=== PATIENT | female | born 1945 | race Caucasian/White ===

== ENCOUNTER 2021-10-19 22:57 | Inpatient (IN) | payer MEDICARE, BC ==
[~2021-10-19] VITALS: Ht 154.9 cm; Wt 60.7 kg
[2021-10-19] MEDS ORDERED: heparin 10,000 units/1 ML INJ IV PRN ×2 (23:10→23:11)
[2021-10-19] MEDS ORDERED: heparin 25,000 UNIT/250ml bag 250 ML IV SCH (23:10)
[2021-10-19] MEDS ORDERED: heparin 10,000 units/1 ML INJ IV ONE ×2 (23:10→23:15)
--- NOTE | 2021-10-19 23:10 | NUR ---
AT BEDSIDE. EKG COMPLETED.
--- NOTE | 2021-10-19 23:11 | NUR ---
RT HAS BEEN PAGED.
[2021-10-19] MEDS ORDERED: ondansetron/PF 4mg/2ml inj IV ONE (23:15)
--- NOTE | 2021-10-19 23:17 | NUR ---
RT IN ROOM.
--- NOTE | 2021-10-19 23:39 | NUR ---
DR HERNANDEZ IN ROOM. DISCUSSED PT'S HEMOGLOBIN, BLOOD TRANSFUSION, AND HEPARIN ORDER WITH DR HERNANDEZ. PT REQUESTED TO HAVE ALL HEPARIN ORDERS CANCELLED.
[2021-10-20 00:08] LABS: ABG BASE EXCESS -2.6 mmol/L (-2.0-2.0); ABG HCO3 21.1 mmol/L (22.0-26.0); ABG OXYGEN SATURATION 98.5 % (94-97); ABG PCO2 (T) 32.2 mmHg (32.0-45.0); ABG PO2 (T) 130.4 mmHg (75.0-100.0); ALLEN'S TEST POSITIVE; FCOHb 0.7 % (0.0-3.9); FMetHb 0.3 % (0.0-1.5); FO2Hb 97.5 % (94-97); TOTAL HEMOGLOBIN 8.7 G/dl (12.0-16.0)
--- NOTE | 2021-10-20 00:38 | NUR ---
CALLED DR HERNANDEZ D/T PT'S INCREASED HEART RATE. ORDERED TO PUT A RICHTER CATHETER IN PATIENT AND GIVE 1/2 ON NS TO PT AND THEN START ON MAINTENANCE FLUIDS 100 ML/ HR.
[2021-10-20] MEDS ORDERED: mag hydrox/Alum hydrox/simeth 30ml oral suspension PO PRN (00:50)
[2021-10-20] MEDS: normal saline 1000ml 1,000 ML IV SCH ×3 (00:50→20:19)
[2021-10-20] MEDS ORDERED: acetaminophen 650mg rectal suppository RC PRN (00:50)
[2021-10-20] MEDS ORDERED: diphenhydrAMINE 25mg capsule PO PRN (00:50)
[2021-10-20] MEDS ORDERED: ondansetron/PF 4mg/2ml inj IV PRN (00:50)
[2021-10-20] MEDS ORDERED: morphine 2 MG/ML inj. syringe IV PRN (00:50)
[2021-10-20] MEDS ORDERED: ondansetron 4mg rapidly disintigrating tab PO PRN (00:50)
[2021-10-20] MEDS ORDERED: ipratropium/albuterol 3ml nebule NEB PRN (00:50)
[2021-10-20] MEDS ORDERED: bisacodyl 10mg suppository rectal RC PRN (00:50)
[2021-10-20] MEDS ORDERED: magnesium hydroxide 30ml (MOM) UD suspension PO PRN (00:50)
[2021-10-20] MEDS ORDERED: acetaminophen 325mg tablet PO PRN ×2 (00:50)
--- NOTE | 2021-10-20 00:54 | NUR ---
UPDATED XAVIER, DAUGHTER, ON PT'S CONDITION WITH PT'S PERMISSION. REQUESTED TO HAVE INFO RATHER THAN FATHER FATHER IS ON OXYGEN AT PRESENT. [phone]
[2021-10-20 04:28] LABS: COLOR,URINE YELLOW (Yellow); GLUCOSE, URINE NEGATIVE (Neg); KETONES,URINE NEGATIVE (Neg); LEUKOCYTE ESTERASE ,URINE NEGATIVE (Neg); NITRITES, URINE NEGATIVE (Neg); OCCULT BLOOD,URINE NEGATIVE (Neg); PH,URINE 6.5 (4.8-8.0); PROTEIN,URINE NEGATIVE (Neg); UROBILINOGEN,URINE 0.2 E.U/dL (0.2-1.0)
[2021-10-20 04:33] LABS: UA COLLECTION TYPE FOLEY CATH
[2021-10-20 04:34] LABS: CLARITY,URINE Clear (Clear)
[2021-10-20 04:50] VITALS: BP 98/48
[2021-10-20 07:00] VITALS: BP 98/45
[2021-10-20 07:08] LABS: APTT 25 SECONDS (22-32)
[2021-10-20 07:27] LABS: MAGNESIUM 2.6 MG/DL (1.5-2.4); PHOSPHORUS 3.5 MG/DL (2.3-4.5)
[2021-10-20] MEDS: pantoprazole 40mg Tablet.DR PO SCH (07:30)
[2021-10-20] MEDS: azithromycin/NS 500mg/250ml 250 ML IV SCH (08:00)
[2021-10-20] MEDS: CefTRIAXone/D5W-Rocephin 1gm 50 ML IV SCH (08:00)
[2021-10-20] MEDS: methylPREDNISolone sod succ 125mg/2ml vial IV SCH ×2 (08:00→20:13)
[2021-10-20] MEDS: docusate sod 100mg capsule PO SCH ×2 (08:00→20:14)
--- NOTE | 2021-10-20 08:54 | NUR ---
Paged RT Re: Vania Flores RM [id number]. Pt having increased SOB needing to be treated. Kirstin ANNE [id number]
--- NOTE | 2021-10-20 09:04 | NUR ---
Critical Lab Trop 0Hr. 6066, increased SOB. Ordered 12 EKG via protocol. Skinny PEREZ.
[2021-10-20 09:15] LABS: HEMOGLOBIN A1C 5.7 % (4.5-6.2)
[2021-10-20 11:00] VITALS: BP 110/56
[2021-10-20] MEDS ORDERED: potassium Cl 40MEQ/1/2NS 520ml 520 ML IV PRN (12:05)
[2021-10-20] MEDS ORDERED: magnesium Cl slow-release 64mg tablet PO PRN (12:05)
[2021-10-20] MEDS ORDERED: magnesium 4gm in 100ml NS 100 ML IV PRN (12:05)
[2021-10-20] MEDS ORDERED: potassium Cl 20 mEq SR tablet PO PRN (12:05)
[2021-10-20 12:59] LABS: BASOPHILS # (AUTO) 0.1 X10'3 (0-0.2); BASOPHILS % (AUTO) 1.3 % (0-1); EOSINOPHILS % (AUTO) 0.2 % (0-6); HEMATOCRIT 23.4 % (35.0-45.0); HEMOGLOBIN 7.6 g/dl (12.0-16.0); LYMPHOCYTES # (AUTO) 0.8 X10'3 (1.1-4.8); LYMPHOCYTES % (AUTO) 8.3 % (21-51); MEAN CORPUSCULAR HEMOGLOBIN 26.9 PG (27.0-31.0); MEAN CORPUSCULAR HGB CONC 32.4 g/dL (33.0-36.5); MEAN PLATELET VOLUME 8.6 FL (7.4-10.4); MONOCYTES # (AUTO) 0.9 X10'3 (0-0.9); MONOCYTES % (AUTO) 9.2 % (2-12); PLATELET COUNT 398 X10'3 (140-440); RED BLOOD COUNT 2.83 X10'6 (4.20-5.60); RED CELL DISTRIBUTION WIDTH 16.9 % (11.5-14.5); WHITE BLOOD COUNT 9.8 X10'3 (4.5-11.0)
[2021-10-20 13:13] LABS: ALANINE AMINOTRANSFERASE 15 U/L (12-78); ALBUMIN/GLOBULIN RATIO 0.8 (1.1-1.5); ALKALINE PHOSPHATASE 48 IU/L (46-116); ANION GAP 12 (8-16); ASPARTATE AMINO TRANSFERASE 42 U/L (10-37); BILIRUBIN,TOTAL 0.6 MG/DL (0.1-1.0); BLOOD UREA NITROGEN 24 MG/DL (7-18); BUN/CREATININE RATIO 12.7 (6.6-38.0); CALCIUM 8.5 MG/DL (8.5-10.1); CHLORIDE 112 MMOL/L (99-107); CREATININE 1.89 MG/DL (0.40-0.90); GLUCOSE 117 MG/DL (70-104); POTASSIUM 3.2 MMOL/L (3.5-5.1); SODIUM 147 MMOL/L (135-145); TOTAL CARBON DIOXIDE 22.6 MMOL/L (24-32); TOTAL PROTEIN 6.6 G/DL (6.4-8.2); eGFR 26 ML/MIN
[2021-10-20] MEDS ORDERED: heparin 25,000 UNIT/250ml bag 250 ML IV SCH (14:46)
[2021-10-20] MEDS ORDERED: heparin 10,000 units/1 ML INJ IV ONE (14:50)
[2021-10-20] MEDS ORDERED: heparin 10,000 units/1 ML INJ IV PRN (14:50)
[2021-10-20 15:00] VITALS: BP 109/83
[2021-10-20] MEDS: heparin 25,000 UNIT/250ml bag 250 ML IV SCH (15:07)
[2021-10-20] MEDS ORDERED: POTASSIUM 8 MEQ (16:38)
[2021-10-20] MEDS ORDERED: TOLT2CAP21 PO (16:38)
[2021-10-20] MEDS ORDERED: CYCL-1 PO (16:38)
[2021-10-20] MEDS ORDERED: ESCI-8 PO (16:38)
[2021-10-20] MEDS ORDERED: AMLO5TAB16 PO (16:38)
[2021-10-20] MEDS ORDERED: FURO20TA4 PO (16:38)
[2021-10-20] MEDS ORDERED: LEVO75TA7 PO (16:38)
[2021-10-20] MEDS ORDERED: FENO48TA10 PO (16:38)
[2021-10-20] MEDS ORDERED: METO50TA16 PO (16:38)
[2021-10-20] MEDS ORDERED: QUET25TA36 PO (16:38)
--- NOTE | 2021-10-20 16:41 | NUR ---
Message: [id number] DOMINIC. HOME MED REC IS NOW READY FOR YOU. MARY RAI
[2021-10-20 18:00] VITALS: BP 109/61
[2021-10-20] MEDS: cyclobenzaprine 10mg tablet PO SCH (20:13)
[2021-10-20] MEDS: furosemide 20MG tablet PO SCH (20:15)
[2021-10-20] MEDS: potassium Cl 20 mEq SR tablet PO PRN (20:15)
[2021-10-20] MEDS: K and/or MAG REPLACEMENT MC SCH (20:15)
[2021-10-20] MEDS: metoprolol tartrate 50mg tablet PO SCH (20:19)
[2021-10-20] MEDS: QUEtiapine 25mg tablet PO SCH (20:20)
[2021-10-20] MEDS: temazepam 15mg capsule PO PRN (22:48)
--- NOTE | 2021-10-20 23:00 | NUR ---
patient fischer removed after being very persistent about it being removed. patient walked to the bathroom x1 assist pt has unsteady gait. was able to urinate. Dr Destiny Celestin notified
[2021-10-21 02:39] VITALS: BP 104/56
--- NOTE | 2021-10-21 04:00 | NUR ---
bladder scan done 86cc noted
[2021-10-21 04:33] LABS: APTT 60 SECONDS (22-32)
[2021-10-21] MEDS: potassium Cl 20 mEq SR tablet PO PRN (05:58)
[2021-10-21] MEDS: normal saline 1000ml 1,000 ML IV SCH ×2 (06:50→16:50)
--- NOTE | 2021-10-21 06:51 | NUR ---
Problems reprioritized. Patient report given, questions answered & plan of care reviewed with Shannon ANNE.
[2021-10-21 07:37] LABS: BASOPHILS % (AUTO) 0.1 % (0-1); EOSINOPHILS % (AUTO) 0 % (0-6); HEMATOCRIT 23.9 % (35.0-45.0); HEMOGLOBIN 7.4 g/dl (12.0-16.0); LYMPHOCYTES # (AUTO) 0.6 X10'3 (1.1-4.8); LYMPHOCYTES % (AUTO) 6.9 % (21-51); MEAN CORPUSCULAR HEMOGLOBIN 26.3 PG (27.0-31.0); MEAN CORPUSCULAR HGB CONC 31.1 g/dL (33.0-36.5); MEAN CORPUSCULAR VOLUME 84.5 FL (78-98); MEAN PLATELET VOLUME 8.5 FL (7.4-10.4); MONOCYTES # (AUTO) 0.1 X10'3 (0-0.9); MONOCYTES % (AUTO) 1.6 % (2-12); NEUTROPHILS # (AUTO) 7.4 X10'3 (1.8-7.7); NEUTROPHILS % (AUTO) 91.4 % (42-75); PLATELET COUNT 406 X10'3 (140-440); RED BLOOD COUNT 2.83 X10'6 (4.20-5.60); RED CELL DISTRIBUTION WIDTH 17.2 % (11.5-14.5); WHITE BLOOD COUNT 8.1 X10'3 (4.5-11.0)
[2021-10-21 08:00] VITALS: BP 97/50
[2021-10-21] MEDS: tolterodine 2mg SR capsule (24hr) PO SCH (08:00)
[2021-10-21] MEDS ORDERED: amLODIPine 5mg tablet PO SCH (08:00)
[2021-10-21] MEDS: furosemide 20MG tablet PO SCH ×2 (08:00→20:38)
[2021-10-21] MEDS ORDERED: non-formulary drug (Escitalopram Oxalate 1 TAB) PO SCH (08:00)
[2021-10-21] MEDS: K and/or MAG REPLACEMENT MC SCH ×2 (08:00→20:39)
[2021-10-21] MEDS: docusate sod 100mg capsule PO SCH ×2 (08:00→20:39)
[2021-10-21] MEDS: metoprolol tartrate 50mg tablet PO SCH ×2 (08:00→20:38)
[2021-10-21 08:24] LABS: ALANINE AMINOTRANSFERASE 21 U/L (12-78); ALBUMIN/GLOBULIN RATIO 0.9 (1.1-1.5); ANION GAP 14 (8-16); ASPARTATE AMINO TRANSFERASE 41 U/L (10-37); BILIRUBIN,TOTAL 0.4 MG/DL (0.1-1.0); BLOOD UREA NITROGEN 26 MG/DL (7-18); BUN/CREATININE RATIO 14.3 (6.6-38.0); CALCIUM 8.4 MG/DL (8.5-10.1); CHLORIDE 114 MMOL/L (99-107); CHOL/HDL RATIO 1.9 (0.00-4.99); CHOLESTEROL 142 MG/DL (0-200); CREATININE 1.82 MG/DL (0.40-0.90); GLUCOSE 133 MG/DL (70-104); HDL CHOLESTEROL 74 MG/DL (35-60); MAGNESIUM 2.7 MG/DL (1.5-2.4); PHOSPHORUS 2.8 MG/DL (2.3-4.5); POTASSIUM 3.7 MMOL/L (3.5-5.1); SODIUM 150 MMOL/L (135-145); TOTAL CARBON DIOXIDE 22.3 MMOL/L (24-32); TOTAL PROTEIN 6.3 G/DL (6.4-8.2); TRIGLYCERIDES 80 MG/DL (20-135); eGFR 27 ML/MIN
[2021-10-21 09:56] LABS: APTT 56 SECONDS (22-32)
[2021-10-21] MEDS: levoTHYROXINE 75mcg tablet PO SCH (10:13)
[2021-10-21] MEDS: ESCITALOPRAM OXALATE 5 MG TABLET PO SCH (10:14)
[2021-10-21] MEDS: fenofibrate 48mg tablet PO SCH (10:15)
[2021-10-21] MEDS: pantoprazole 40mg Tablet.DR PO SCH (10:21)
[2021-10-21] MEDS: CefTRIAXone/D5W-Rocephin 1gm 50 ML IV SCH (10:21)
[2021-10-21] MEDS: methylPREDNISolone sod succ 125mg/2ml vial IV SCH ×2 (10:21→20:37)
[2021-10-21 10:54] LABS: LDL CHOLESTEROL 56 MG/DL (50-100)
[2021-10-21 11:00] VITALS: BP_SYST 114; BP_DIAS 57; BP_DIAS 60
[2021-10-21 11:10] LABS: ALKALINE PHOSPHATASE 60 IU/L (46-116)
[2021-10-21] MEDS: azithromycin/NS 500mg/250ml 250 ML IV SCH (11:34)
[2021-10-21 15:00] VITALS: BP_SYST 112; BP_SYST 95; BP_DIAS 51; BP_DIAS 61
[2021-10-21 18:00] VITALS: BP 112/58
[2021-10-21] MEDS: QUEtiapine 25mg tablet PO SCH (20:37)
[2021-10-21] MEDS: cyclobenzaprine 10mg tablet PO SCH (20:39)
[2021-10-21 22:00] VITALS: BP 100/53
[2021-10-21] MEDS: heparin 25,000 UNIT/250ml bag 250 ML IV SCH (22:05)
[2021-10-21 23:19] LABS: APTT 51 SECONDS (22-32)
[2021-10-21] MEDS ORDERED: dextrose 5%-water 1,000 ML IV SCH (23:45)
[2021-10-22] MEDS: temazepam 15mg capsule PO PRN ×2 (00:28→20:37)
[2021-10-22] MEDS: aspirin 81mg, enteric-coated 1 TAB TABLET.DR PO SCH ×2 (00:46→09:46)
[2021-10-22 02:00] VITALS: BP 103/50
[2021-10-22 06:00] VITALS: BP 119/74
--- NOTE | 2021-10-22 06:44 | NUR ---
Problems reprioritized. Patient report given, questions answered & plan of care reviewed with Steph RN
[2021-10-22 06:57] LABS: BASOPHILS % (AUTO) 0 % (0-1); EOSINOPHILS % (AUTO) 0 % (0-6); HEMOGLOBIN 7.2 g/dl (12.0-16.0); LYMPHOCYTES # (AUTO) 0.5 X10'3 (1.1-4.8); LYMPHOCYTES % (AUTO) 5.2 % (21-51); MEAN CORPUSCULAR HEMOGLOBIN 26.2 PG (27.0-31.0); MEAN CORPUSCULAR HGB CONC 31.3 g/dL (33.0-36.5); MEAN PLATELET VOLUME 8.5 FL (7.4-10.4); MONOCYTES # (AUTO) 0.2 X10'3 (0-0.9); MONOCYTES % (AUTO) 1.8 % (2-12); NEUTROPHILS # (AUTO) 8.3 X10'3 (1.8-7.7); PLATELET COUNT 429 X10'3 (140-440); RED BLOOD COUNT 2.74 X10'6 (4.20-5.60); RED CELL DISTRIBUTION WIDTH 17.9 % (11.5-14.5)
[2021-10-22 07:07] LABS: APTT 50 SECONDS (22-32)
[2021-10-22 07:47] LABS: ALANINE AMINOTRANSFERASE 41 U/L (12-78); ALBUMIN 2.9 G/DL (3.4-5.0); ALBUMIN/GLOBULIN RATIO 0.9 (1.1-1.5); ALKALINE PHOSPHATASE 59 IU/L (46-116); ANION GAP 12 (8-16); ASPARTATE AMINO TRANSFERASE 73 U/L (10-37); BILIRUBIN,TOTAL 0.4 MG/DL (0.1-1.0); BLOOD UREA NITROGEN 38 MG/DL (7-18); BUN/CREATININE RATIO 21.2 (6.6-38.0); CALCIUM 8.2 MG/DL (8.5-10.1); CHLORIDE 113 MMOL/L (99-107); CREATININE 1.79 MG/DL (0.40-0.90); GLUCOSE 133 MG/DL (70-104); MAGNESIUM 2.7 MG/DL (1.5-2.4); PHOSPHORUS 3.4 MG/DL (2.3-4.5); POTASSIUM 3.7 MMOL/L (3.5-5.1); SODIUM 148 MMOL/L (135-145); TOTAL CARBON DIOXIDE 23.5 MMOL/L (24-32); TOTAL PROTEIN 6.2 G/DL (6.4-8.2); eGFR 27 ML/MIN
[2021-10-22] MEDS: K and/or MAG REPLACEMENT MC SCH ×2 (08:00→20:00)
[2021-10-22] MEDS: pantoprazole 40mg Tablet.DR PO SCH (09:45)
[2021-10-22] MEDS: levoTHYROXINE 75mcg tablet PO SCH (09:46)
[2021-10-22] MEDS: ESCITALOPRAM OXALATE 5 MG TABLET PO SCH (09:46)
[2021-10-22] MEDS: atorvastatin 10mg tablet PO SCH (09:47)
[2021-10-22] MEDS: fenofibrate 48mg tablet PO SCH (09:47)
[2021-10-22] MEDS: metoprolol tartrate 50mg tablet PO SCH ×2 (09:56→20:38)
[2021-10-22] MEDS: docusate sod 100mg capsule PO SCH ×2 (09:56→20:37)
[2021-10-22] MEDS: methylPREDNISolone sod succ 125mg/2ml vial IV SCH ×2 (09:58→20:38)
[2021-10-22] MEDS: furosemide 20 MG/2 ML vial IV SCH ×2 (09:59→20:38)
[2021-10-22] MEDS: tolterodine 2mg SR capsule (24hr) PO SCH (10:02)
[2021-10-22] MEDS: azithromycin/NS 500mg/250ml 250 ML IV SCH (10:03)
[2021-10-22] MEDS: CefTRIAXone/D5W-Rocephin 1gm 50 ML IV SCH (10:26)
[2021-10-22 11:00] VITALS: BP 103/58
[2021-10-22 15:00] VITALS: BP 112/55
[2021-10-22 18:00] VITALS: BP 135/83
[2021-10-22] MEDS: cyclobenzaprine 10mg tablet PO SCH (20:37)
[2021-10-22] MEDS: QUEtiapine 25mg tablet PO SCH (20:37)
[2021-10-22] MEDS: ROPINIRole 0.25mg tablet PO SCH (21:00)
[2021-10-22 22:22] VITALS: BP 128/80
[2021-10-23] MEDS: diphenhydrAMINE 50 mg/ml inj IV PRN (00:05)
[2021-10-23 02:00] VITALS: BP 133/74
[2021-10-23 04:36] LABS: OCCULT BLOOD STOOL NEGATIVE (Neg)
[2021-10-23 06:00] VITALS: BP 126/81
[2021-10-23 07:36] LABS: EOSINOPHILS % (AUTO) 0 % (0-6); HEMOGLOBIN 8.8 g/dl (12.0-16.0); LYMPHOCYTES # (AUTO) 0.2 X10'3 (1.1-4.8); MONOCYTES # (AUTO) 0.4 X10'3 (0-0.9)
[2021-10-23 07:38] LABS: BASOPHILS % (AUTO) 0.3 % (0-1); LYMPHOCYTES % (AUTO) 2.4 % (21-51); MEAN CORPUSCULAR HEMOGLOBIN 26.7 PG (27.0-31.0); MEAN CORPUSCULAR HGB CONC 31.4 g/dL (33.0-36.5); MEAN CORPUSCULAR VOLUME 85.1 FL (78-98); MEAN PLATELET VOLUME 8.9 FL (7.4-10.4); MONOCYTES % (AUTO) 4.3 % (2-12); PLATELET COUNT 356 X10'3 (140-440); RED BLOOD COUNT 3.29 X10'6 (4.20-5.60); RED CELL DISTRIBUTION WIDTH 17.5 % (11.5-14.5); WHITE BLOOD COUNT 8.6 X10'3 (4.5-11.0)
[2021-10-23] MEDS: K and/or MAG REPLACEMENT MC SCH ×2 (08:00→20:00)
[2021-10-23] MEDS: docusate sod 100mg capsule PO SCH ×2 (08:00→11:34)
[2021-10-23] MEDS: furosemide 20 MG/2 ML vial IV SCH ×2 (08:00→20:18)
[2021-10-23] MEDS: ROPINIRole 0.25mg tablet PO SCH ×3 (08:00→20:17)
[2021-10-23 08:26] LABS: ALANINE AMINOTRANSFERASE 94 U/L (12-78); ALKALINE PHOSPHATASE 73 IU/L (46-116); ANION GAP 12 (8-16); ASPARTATE AMINO TRANSFERASE 180 U/L (10-37); BILIRUBIN,TOTAL 0.4 MG/DL (0.1-1.0); BLOOD UREA NITROGEN 46 MG/DL (7-18); CALCIUM 8.5 MG/DL (8.5-10.1); CHLORIDE 111 MMOL/L (99-107); GLUCOSE 99 MG/DL (70-104); MAGNESIUM 2.5 MG/DL (1.5-2.4); PHOSPHORUS 4.2 MG/DL (2.3-4.5); POTASSIUM 3.8 MMOL/L (3.5-5.1); SODIUM 147 MMOL/L (135-145); TOTAL CARBON DIOXIDE 24.1 MMOL/L (24-32); TOTAL PROTEIN 6.1 G/DL (6.4-8.2); eGFR 24 ML/MIN
[2021-10-23] MEDS: tolterodine 2mg SR capsule (24hr) PO SCH (09:14)
[2021-10-23] MEDS: metoprolol tartrate 50mg tablet PO SCH ×2 (09:14→20:18)
[2021-10-23] MEDS: atorvastatin 10mg tablet PO SCH (09:15)
[2021-10-23] MEDS: fenofibrate 48mg tablet PO SCH (09:15)
[2021-10-23] MEDS: levoTHYROXINE 75mcg tablet PO SCH (09:16)
[2021-10-23] MEDS: pantoprazole 40mg Tablet.DR PO SCH (09:16)
[2021-10-23] MEDS: aspirin 81mg, enteric-coated 1 TAB TABLET.DR PO SCH (09:20)
[2021-10-23] MEDS: azithromycin/NS 500mg/250ml 250 ML IV SCH (09:21)
[2021-10-23] MEDS: ESCITALOPRAM OXALATE 5 MG TABLET PO SCH (09:21)
[2021-10-23] MEDS: methylPREDNISolone sod succ 125mg/2ml vial IV SCH (09:22)
[2021-10-23] MEDS: CefTRIAXone/D5W-Rocephin 1gm 50 ML IV SCH (09:25)
[2021-10-23 09:40] LABS: ANISOCYTOSIS 1+; NUCLEATED RED BLOOD CELLS 1 /100WBC (0-0); PLATELET ESTIMATE NORMAL; TOTAL CELLS COUNTED 100
[2021-10-23 11:00] VITALS: BP 93/59
[2021-10-23 15:00] VITALS: BP 125/78
--- NOTE | 2021-10-23 15:12 | NUR ---
Pt very anxious and fidgety, refusing to stay in bed. Daughter at bedside along with sitter. Addendum: 10/23/21 at 1517 by Steph Pham RN notified. Received orders for Ativan .5mg statx1 dose.
[2021-10-23] MEDS ORDERED: LORazepam 2 mg/ml vial IV ONE (15:20)
[2021-10-23 18:00] VITALS: BP 124/68
--- NOTE | 2021-10-23 20:10 | NUR ---
Patient is being combative with sitter, and refusing to keep her oxygen on. This nurse notified Dr. Swanson orders was given for a chest x-ray and ABG's.
[2021-10-23] MEDS: cyclobenzaprine 10mg tablet PO SCH (20:17)
[2021-10-23] MEDS: HYDROcodone/acetaminophen 5mg/325mg tablet PO PRN (20:17)
[2021-10-23] MEDS: temazepam 15mg capsule PO PRN (20:18)
[2021-10-23] MEDS: QUEtiapine 25mg tablet PO SCH (20:18)
[2021-10-23 22:04] VITALS: BP 121/73
[2021-10-24 02:00] VITALS: BP 119/76
[2021-10-24] MEDS: diphenhydrAMINE 50 mg/ml inj IV PRN (02:13)
[2021-10-24] MEDS: HYDROcodone/acetaminophen 5mg/325mg tablet PO PRN (02:15)
[2021-10-24 06:00] VITALS: BP 139/58
[2021-10-24 08:00] LABS: BASOPHILS % (AUTO) 0.2 % (0-1); LYMPHOCYTES # (AUTO) 0.6 X10'3 (1.1-4.8); MEAN CORPUSCULAR HGB CONC 30.4 g/dL (33.0-36.5); PLATELET COUNT 302 X10'3 (140-440)
[2021-10-24] MEDS: K and/or MAG REPLACEMENT MC SCH (08:00)
[2021-10-24] MEDS: docusate sod 100mg capsule PO SCH (08:00)
[2021-10-24] MEDS: levoTHYROXINE 75mcg tablet PO SCH (08:00)
[2021-10-24 08:01] LABS: EOSINOPHILS % (AUTO) 0 % (0-6); HEMATOCRIT 32.3 % (35.0-45.0); HEMOGLOBIN 9.8 g/dl (12.0-16.0); LYMPHOCYTES % (AUTO) 7.8 % (21-51); MEAN CORPUSCULAR HEMOGLOBIN 26.7 PG (27.0-31.0); MEAN CORPUSCULAR VOLUME 87.7 FL (78-98); MEAN PLATELET VOLUME 9.1 FL (7.4-10.4); MONOCYTES # (AUTO) 0.9 X10'3 (0-0.9); MONOCYTES % (AUTO) 11.6 % (2-12); NEUTROPHILS % (AUTO) 80.4 % (42-75); RED BLOOD COUNT 3.68 X10'6 (4.20-5.60); WHITE BLOOD COUNT 7.5 X10'3 (4.5-11.0)
[2021-10-24 08:34] LABS: ALANINE AMINOTRANSFERASE 261 U/L (12-78); ALBUMIN 2.9 G/DL (3.4-5.0); ALBUMIN/GLOBULIN RATIO 0.8 (1.1-1.5); ALKALINE PHOSPHATASE 87 IU/L (46-116); ANION GAP 15 (8-16); ASPARTATE AMINO TRANSFERASE 509 U/L (10-37); BILIRUBIN,TOTAL 0.4 MG/DL (0.1-1.0); BLOOD UREA NITROGEN 54 MG/DL (7-18); CALCIUM 8.3 MG/DL (8.5-10.1); CHLORIDE 111 MMOL/L (99-107); CREATININE 1.86 MG/DL (0.40-0.90); GLUCOSE 83 MG/DL (70-104); MAGNESIUM 2.7 MG/DL (1.5-2.4); POTASSIUM 3.5 MMOL/L (3.5-5.1); SODIUM 150 MMOL/L (135-145); TOTAL PROTEIN 6.4 G/DL (6.4-8.2); eGFR 26 ML/MIN
[2021-10-24] MEDS: pantoprazole 40mg Tablet.DR PO SCH (08:59)
[2021-10-24] MEDS: aspirin 81mg, enteric-coated 1 TAB TABLET.DR PO SCH (08:59)
[2021-10-24] MEDS: atorvastatin 10mg tablet PO SCH (08:59)
[2021-10-24] MEDS: fenofibrate 48mg tablet PO SCH (09:00)
[2021-10-24] MEDS: ESCITALOPRAM OXALATE 5 MG TABLET PO SCH (09:00)
[2021-10-24] MEDS: tolterodine 2mg SR capsule (24hr) PO SCH (09:01)
[2021-10-24] MEDS: furosemide 20 MG/2 ML vial IV SCH (09:02)
[2021-10-24] MEDS: ROPINIRole 0.25mg tablet PO SCH ×2 (09:10→14:08)
[2021-10-24] MEDS: metoprolol tartrate 50mg tablet PO SCH (09:10)
[2021-10-24] MEDS: CefTRIAXone/D5W-Rocephin 1gm 50 ML IV SCH (09:27)
[2021-10-24 11:00] VITALS: BP 123/71
[2021-10-24] MEDS ORDERED: ASPI-1071 PO (11:25)
--- NOTE | 2021-10-24 11:46 | NUR ---
O2 Sat at rest on room air:_87__% If below 89%: Recovery O2 Sat at rest on _3__LPM:_94__%:___% via__Nasal Canula____(mask/nasal cannula, etc..) No further documentation is necessary.
--- NOTE | 2021-10-24 14:27 | NUR ---
Initial: Pt admitted w/ NSTEMI; COPD and PNA per EMR, currently on 6L HF oxygen. Pt has been on Clear liquid diet since admit w/ mostly 25-50% intake of meals not meeting needs, though no real indication for Clear liquids at this time. D/w RN if possible to advance to Regular diet if MD agreeable. Pt has noted to have been A&O x 1 and confused/agitated. LBM 2 receiving routine colace. Limited nutrition intervention at this time, will continue to monitor. Recs: 1. Advance as medically indicated to Regular diet 2. Monitor need for ONS upon diet advancement 3. Bowel care per rx 4. Scaled wts Addendum: 10/24/21 at [address] Amended: Links added.
[2021-10-24] MEDS ORDERED: LEVO500T90 PO (15:09)
--- NOTE | 2021-10-24 15:44 | NUR ---
Discharge. Patient is stable for discharge per MD orders.Discharge teaching and instruction given to patient daughter Thalia at personal vehicle. Instructed the importance of compliance with medication and keeping scheduled appointments. Discussed new and discontinued medication. Informed medication called to pharmacy of choice listed on EMR per md.Patient/daughter states have all belongings-Patient had 2pair of glasses on on discharge.IV access removed, telemetry discontinued and removed. Discharge to personal vehicle via wheelchair accompanied by staff wearing home [id number] via portable tank delivered prior by [employer].
== END 2021-10-24 16:09 | disposition home health service (06) | DRG 193 ==
LOC: ER 22:58 → ED HOLD 10-20 00:51 → EDBEDREQ 10-20 01:00 → PCU 3S 10-20 04:25
PROVIDERS: ADMIT Family Medicine; ATTEND Family Medicine
PROC: 30233N1 Transfusion of Nonautologous Red Blood Cells into Peripheral Vein, Percutaneous Approach (ICD-10-PCS; principal; 2021-10-22)
DX: J18.9 Pneumonia, unspecified organism (principal); J96.01 Acute respiratory failure with hypoxia; I21.A1 Myocardial infarction type 2; I50.23 Acute on chronic systolic (congestive) heart failure; I13.0 Hypertensive heart and chronic kidney disease with heart failure and stage 1 through stage 4 chronic kidney disease, or unspecified chronic kidney disease; E87.0 Hyperosmolality and hypernatremia; N17.9 Acute kidney failure, unspecified; Z20.822 Contact with and (suspected) exposure to COVID-19; D64.9 Anemia, unspecified; E03.9 Hypothyroidism, unspecified; E78.5 Hyperlipidemia, unspecified; E86.1 Hypovolemia; F03.90 Unspecified dementia, unspecified severity, without behavioral disturbance, psychotic disturbance, mood disturbance, and anxiety; F32.A Depression, unspecified; I25.10 Atherosclerotic heart disease of native coronary artery without angina pectoris; G89.4 Chronic pain syndrome; J43.9 Emphysema, unspecified; K21.9 Gastro-esophageal reflux disease without esophagitis; K76.1 Chronic passive congestion of liver; N18.9 Chronic kidney disease, unspecified; R32 Unspecified urinary incontinence; I71.4 Abdominal aortic aneurysm, without rupture; M10.9 Gout, unspecified; R19.7 Diarrhea, unspecified; R74.01 Elevation of levels of liver transaminase levels; Z79.82 Long term (current) use of aspirin; Z79.899 Other long term (current) drug therapy; Z86.79 Personal history of other diseases of the circulatory system; Z87.891 Personal history of nicotine dependence; Z90.710 Acquired absence of both cervix and uterus; Z99.81 Dependence on supplemental oxygen; Z79.890 Hormone replacement therapy
CPT/HCPCS: 36415; 36430; 36600; 71045; 80053; 80061; 81003; 82272; 82803; 83036; 83735; 83880; 84100; 84439; 84443; 84484; 85007; 85018; 85025; 85610; 85730; 86885; 86900; 86901; 86920; 87045; 87046; 87081; 87635; 89055; 93005; 93306; 94640; 94760; 99291; G0378; J0456; J0696; J1200; J1644; J1940; J2060; J2405; J2930; J7030; J7070; P9016